=== PATIENT | male | born 1945 | race Caucasian/White ===

== ENCOUNTER 2022-01-27 14:00 | Inpatient (IN) | payer OTHER ==
[~2022-01-27] VITALS: Ht 167.6 cm; Wt 87.5 kg
[2022-01-27] MEDS ORDERED: IV NORMAL SALINE 1000 ML BAG IV ONE (14:15)
[2022-01-27] MEDS ORDERED: ALBUTEROL SULFATE 2.5 MG/3 ML NEBU ONE (14:56)
[2022-01-27] MEDS ORDERED: IPRATROPIUM BROMIDE 0.5 MG/2.5 ML NEBU ONE (14:56)
[2022-01-27] MEDS ORDERED: ALBUTEROL SULFATE 2.5 MG/3 ML NEBU NEB ONE (15:00)
[2022-01-27] MEDS ORDERED: IPRATROPIUM BROMIDE 0.5 MG/2.5 ML NEBU NEB ONE (15:00)
--- NOTE | 2022-01-27 15:51 | NUR ---
NS was not given due to no iv site available, mid line was order by supervisor hand workers and was told at 15:50 that service will arrived in 45 mins. will continue to followup on order.
--- NOTE | 2022-01-27 16:50 | NUR ---
MIDLINE INSERTED BY SPECIALTY RN PER MD ORDER.
[2022-01-27] MEDS ORDERED: FLUT16SP BNOSTRILS (17:15)
[2022-01-27] MEDS ORDERED: FLUT1DIS28 INH (17:15)
[2022-01-27] MEDS ORDERED: ZOLP5TAB8 PO (17:15)
[2022-01-27] MEDS ORDERED: HYDR-3972 PO (17:15)
[2022-01-27 17:35] LABS: CARBON DIOXIDE 23 mmol/L (21-32); CHLORIDE 109 mmol/L (98-107); CREATININE 1.3 mg/dL (0.6-1.3); GLUCOSE 128 mg/dL (74-106); POTASSIUM 3.8 mmol/L (3.5-5.1); UREA NITROGEN, BLOOD 16 mg/dL (7-18)
[2022-01-27 17:43] LABS: ALANINE AMINOTRANSFERASE 57 U/L (16-63); ALKALINE PHOSPHATASE 61 U/L (50-136); ASPARTATE AMINOTRANSFERASE 45 U/L (15-37); BILIRUBIN,DIRECT 0.6 mg/dL (0.0-0.2); BILIRUBIN,TOTAL 1.3 mg/dL (0.2-1.0); TOTAL PROTEIN, SERUM 5.8 g/dL (6.4-8.2)
[2022-01-27 17:59] LABS: HEMATOCRIT 22.7 % (36.7-47.1); MEAN CORPUSCULAR HEMOGLOBIN 31.5 uug (23.8-33.4); MEAN CORPUSCULAR VOLUME 101.2 fL (73.0-96.2); PLATELET COUNT (AUTO) 245 K/uL (152-348)
[2022-01-27] MEDS ORDERED: IV NS 1000 ML 1,000 ML IV PRN (19:00)
[2022-01-27] MEDS ORDERED: PANTOPRAZOLE SODIUM IV 80 MG in IV DEXTROSE 5% 500 ML IV ONE (19:00)
[2022-01-27] MEDS ORDERED: MAGNESIUM HYDROXIDE 30 ML LIQUID UDC PO PRN (19:00)
[2022-01-27] MEDS ORDERED: ACETAMINOPHEN 325 MG TABLET PO PRN (19:00)
[2022-01-27] MEDS ORDERED: OCTREOTIDE ACETATE INJ 500 MCG in IV DEXTROSE 5% 100 ML IV ONE (19:00)
[2022-01-27] MEDS ORDERED: REMEDY ESSENTIAL ZINC PASTE 113 GM TP PRN (19:00)
[2022-01-27] MEDS ORDERED: OCTREOTIDE ACETATE 50 MCG/1 ML ML IV ONE (19:00)
[2022-01-27] MEDS ORDERED: ONDANSETRON 4 MG/2 ML VIAL IV PRN (19:00)
--- NOTE | 2022-01-27 19:00 | NUR ---
Called Dr. Allan for GI consult.
--- NOTE | 2022-01-27 19:03 | NUR ---
Dr. Contreras on panel call with Lucia Montoya NP.
--- NOTE | 2022-01-27 19:10 | NUR ---
Received call back from pt's son, will stop by in ER later to give medication list.
[2022-01-27 19:20] LABS: HEMATOCRIT 24.7 % (36.7-47.1); PLATELET COUNT (AUTO) 204 K/uL (152-348)
--- NOTE | 2022-01-27 19:27 | NUR ---
Dr. Contreras speaking with Dr. Hardin.
[2022-01-27] MEDS ORDERED: PANTOPRAZOLE SODIUM 40 MG VIAL ONE (19:39)
[2022-01-27] MEDS ORDERED: OCTREOTIDE ACETATE 500 MCG/1 ML VIAL ONE (19:40)
[2022-01-27] MEDS ORDERED: OCTREOTIDE ACETATE 50 MCG/1 ML ML ONE (19:40)
--- NOTE | 2022-01-27 20:04 | NUR ---
Dr. Contreras speaking with Dr. Allan for GI consult.
[2022-01-27] MEDS ORDERED: MORPHINE SULFATE 2 MG/1 ML DISP.SYRIN ONE (20:11)
[2022-01-27] MEDS ORDERED: MORPHINE SULFATE 2 MG/1 ML DISP.SYRIN IV ONE (20:15)
[2022-01-27] MEDS ORDERED: MIRA25TA PO (20:22)
[2022-01-27] MEDS ORDERED: PRAV10TA40 PO (20:22)
[2022-01-27] MEDS ORDERED: METF-494 PO (20:22)
[2022-01-27] MEDS ORDERED: SPIR50TA5 PO (20:22)
[2022-01-27] MEDS ORDERED: LACT10SO3 PO (20:22)
[2022-01-27] MEDS ORDERED: ERGO500040 PO (20:22)
[2022-01-27] MEDS ORDERED: SUCR1TAB PO (20:22)
[2022-01-27] MEDS ORDERED: TAMS-3 PO (20:22)
[2022-01-27] MEDS ORDERED: ATEN50TA PO (20:22)
[2022-01-27] MEDS ORDERED: LEVO5TAB13 PO (20:22)
[2022-01-27] MEDS ORDERED: PANT40TA49 PO (20:22)
[2022-01-27] MEDS ORDERED: FURO20TA4 PO (20:22)
[2022-01-27] MEDS ORDERED: SOFO1TAB PO (20:22)
[2022-01-27] MEDS ORDERED: MULT-594 PO (20:22)
[2022-01-27] MEDS ORDERED: IBAN150T16 PO (20:22)
[2022-01-27] MEDS ORDERED: PIPERACILLIN SODIUM/TAZOBACTAM 3.375 G in IV DEXTROSE 5% 100 ML IV SCH (21:00)
--- NOTE | 2022-01-27 21:02 | NUR ---
Attempted to call report x1. Instructed by charge nurse MOIZ Ocampo that she will have primary assigned nurse to call back to get report.
--- NOTE | 2022-01-27 21:02 | NUR ---
Diana tena in ED - 01/27/22 at 2311 by DAYSIUZ Attempted to call report x1. Instructed by charge nurse MOIZ Ocampo that she will have primary assigned nurse to call back to get report.
--- NOTE | 2022-01-27 21:10 | NUR ---
Report given to MOIZ Ocampo.
[2022-01-27] MEDS ORDERED: PIPERACILLIN/TAZOBACTAM/D5W 50 ML IV ONE (21:45)
[2022-01-27] MEDS ORDERED: PIPERACILLIN SODIUM/TAZOBACTAM 3.375 G in IV DEXTROSE 5% 50 ML IV SCH (22:00)
--- NOTE | 2022-01-27 22:00 | NUR ---
Pt. admitted to Telemetry , under care of Lucia Montoya, ELLYN Belongs List completed
--- NOTE | 2022-01-27 22:05 | NUR ---
ADMITTED THIS 76 YEAR OLD MALE FROM ER, VIA GURSUDHAKAR W/ CHIEF COMPLAINTS OF LOWER G.BLEED,.PT ALERT AND ORIENTEDX4, HE SIGNED BLOOD TRANSFUSION CONSENT, HE HAD PARACENTHESIS DONE AT [facility] EARLIER,UPON GETTING HOME HE HAD BLOODY BOWEL MOVEMENTS AND CALLED 911. MIDLINE ON LEFT UPPER ARM INTACT, PERIPHERAL IV ON RIGHT HANDG G29 PATENT AND INTACT.ABRASION ON RT ARM
[2022-01-27 22:35] VITALS: BP 109/66
[2022-01-27 22:41] VITALS: BP 109/66
[2022-01-27 23:04] VITALS: BP 116/55
[2022-01-27 23:36] VITALS: BP 114/66
[2022-01-28] VITALS (8 sets, daily range): BP systolic 109–142; BP diastolic 54–83
--- NOTE | 2022-01-28 01:26 | NUR ---
Transfused 1 PRBC tolerated well, no noted adverse reaction. No noted resp distress. Will continue to monitor for delay reaction.
--- NOTE | 2022-01-28 01:45 | NUR ---
Troponin level is trending up, Jerry Jacobs NP aware no new order.
[2022-01-28 01:49] LABS: HEMATOCRIT 24.3 % (36.7-47.1)
[2022-01-28] MEDS ORDERED: PIPERACILLIN/TAZOBACTAM/D5W 50 ML IV ONE ×2 (02:21)
[2022-01-28] MEDS ORDERED: OCTREOTIDE ACETATE DRIP 500 MCG in IV NORMAL SALINE 99 ML IV PRN (06:00)
[2022-01-28 06:29] LABS: BILIRUBIN,TOTAL 1.5 mg/dL (0.2-1.0); CREATININE 1.3 mg/dL (0.6-1.3); MAGNESIUM 1.5 mg/dL (1.8-2.4); PHOSPHOROUS 4.1 mg/dL (2.5-4.9); POTASSIUM 3.9 mmol/L (3.5-5.1); TOTAL PROTEIN, SERUM 5.5 g/dL (6.4-8.2)
[2022-01-28 06:31] LABS: HEMATOCRIT 22.4 % (36.7-47.1); MEAN CORPUSCULAR HEMOGLOBIN 32.9 uug (23.8-33.4); MEAN CORPUSCULAR VOLUME 96.3 fL (73.0-96.2); PLATELET COUNT (AUTO) 156 K/uL (152-348)
--- NOTE | 2022-01-28 06:42 | NUR ---
Troponin level 381, Jerry Jacobs CRTTS made aware, no new order. Patient awake alert and oriented x3, denies chest pain.
[2022-01-28] MEDS ORDERED: OCTREOTIDE ACETATE DRIP 500 MCG in IV NORMAL SALINE 99 ML IV SCH (07:30)
--- NOTE | 2022-01-28 07:51 | NUR ---
I RECEIVED PATIENT FROM LABORATORY CHIEF AND WAS TOLD THAT HIS 4AM DOSE ZOSYN WASN'T ADMINISTERED. I CALLED TO THE PHARMACY AND WAS TOLD TO GIVE IT TO THE PATIENT NOW AT 8 AM. PHARMACY CHECKED COMPATIBILITY OF ZOSYN WITH SANDOSTATIN AND THEY SAID IT'S OK TO GIVE TOGETHER.
[2022-01-28] MEDS: FLUTICASONE/VILANTEROL 1 EACH BLST.W.DEV INH SCH (08:51)
[2022-01-28] MEDS: FLUTICASONE PROP NASAL SPRAY 16 GM BOTTLE NS SCH (08:51)
[2022-01-28] MEDS: PANTOPRAZOLE SODIUM 40 MG VIAL IV SCH ×2 (08:52→21:00)
[2022-01-28] MEDS ORDERED: FLUTICASONE/SALMETEROL 250/50 INHALER INH SCH (09:00)
[2022-01-28] MEDS ORDERED: PIPERACILLIN SODIUM/TAZOBACTAM 3.375 G in IV DEXTROSE 5% 50 ML IV SCH ×3 (10:00)
[2022-01-28] MEDS: MAGNESIUM SULFATE/D5W 100 ML IV SCH ×2 (10:23→15:03)
[2022-01-28] MEDS: PIPERACILLIN SODIUM/TAZOBACTAM 3.375 G in IV DEXTROSE 5% 100 ML IV SCH ×2 (11:20→20:00)
--- NOTE | 2022-01-28 12:24 | NUR ---
Patient was picked up for EGD at 12:06 pm. Patient didn't have any pain or distress. Vitals WNL
[2022-01-28] MEDS ORDERED: PROPOFOL 200 MG/20 ML BOTTLE IV ONE (12:42)
[2022-01-28] MEDS ORDERED: LIDOCAINE-MPF 2% 5 ML VIAL IJ ONE (12:42)
[2022-01-28] MEDS ORDERED: FENTANYL CITRATE 100 MCG/2 ML AMPUL ONE (13:04)
[2022-01-28] MEDS ORDERED: GABA-532 PO (13:13)
[2022-01-28] MEDS ORDERED: METF-440 PO (13:13)
[2022-01-28] MEDS ORDERED: AMLO-212 PO (13:13)
[2022-01-28 15:53] LABS: IRON, SERUM 28 ug/dL (50-175)
[2022-01-28] MEDS: OCTREOTIDE ACETATE DRIP 500 MCG in IV NORMAL SALINE 99 ML IV SCH (21:00)
[2022-01-28] MEDS ORDERED: MORPHINE SULFATE 2 MG/1 ML DISP.SYRIN IV PRN (22:30)
[2022-01-28] MEDS: MORPHINE SULFATE 2 MG/1 ML DISP.SYRIN IV PRN (22:59)
[2022-01-29 01:03] VITALS: BP 137/81
--- NOTE | 2022-01-29 01:42 | NUR ---
Lab was unable to withdraw blood from patient tried 2 other nurses still unable to withdraw blood will endorse to am nurse.
--- NOTE | 2022-01-29 02:09 | NUR ---
BEGINIING OF SHIFT PT C/O PAIN NO SIGNS OF RESPIRATORY DISTRESS NOTED. PT DIDN'T HAVE ANY MEDICATION FOR PAIN EXCEPT TYLENOL. CONTACTED DR. HARDEN AND HE ORDERED MORPHINE 2MG Q4H PRN GAVE PT MEDICATION AND REASSESSED PT AFTERWARDS.PT SLEEPING BUT EASY TO AROUSED WILL CONTINUE TO MONITOR FOR SAFETY. AND FALLS
[2022-01-29] MEDS: PIPERACILLIN SODIUM/TAZOBACTAM 3.375 G in IV DEXTROSE 5% 100 ML IV SCH ×3 (02:44→17:28)
[2022-01-29 04:41] VITALS: BP 110/62
[2022-01-29] MEDS: MORPHINE SULFATE 2 MG/1 ML DISP.SYRIN IV PRN ×4 (06:19→21:27)
[2022-01-29 06:44] LABS: HEMATOCRIT 22.5 % (36.7-47.1); MEAN CORPUSCULAR HEMOGLOBIN 31.9 uug (23.8-33.4); MEAN CORPUSCULAR VOLUME 97.7 fL (73.0-96.2); PLATELET COUNT (AUTO) 128 K/uL (152-348)
[2022-01-29 07:06] LABS: BILIRUBIN,TOTAL 1.1 mg/dL (0.2-1.0); CREATININE 1.2 mg/dL (0.6-1.3); MAGNESIUM 1.9 mg/dL (1.8-2.4); PHOSPHOROUS 3.4 mg/dL (2.5-4.9); POTASSIUM 3.6 mmol/L (3.5-5.1); TOTAL PROTEIN, SERUM 5.7 g/dL (6.4-8.2)
[2022-01-29 07:17] LABS: THYROID STIMULATING HORMONE 0.454 mIU/mL (0.358-3.740)
[2022-01-29] MEDS: OCTREOTIDE ACETATE DRIP 500 MCG in IV NORMAL SALINE 99 ML IV SCH (07:39)
[2022-01-29] MEDS: FLUTICASONE/VILANTEROL 1 EACH BLST.W.DEV INH SCH (10:46)
[2022-01-29] MEDS: FLUTICASONE PROP NASAL SPRAY 16 GM BOTTLE NS SCH (10:47)
[2022-01-29] MEDS: PANTOPRAZOLE SODIUM 40 MG VIAL IV SCH ×2 (10:51→20:21)
[2022-01-29 11:06] LABS: HEPATITIS B SURFACE AG Negative (Negative)
[2022-01-29 11:47] VITALS: BP 118/69
[2022-01-29] MEDS ORDERED: EPOETIN ALFA-EPBX 10,000 UNIT/ML VIAL SQ ONE (12:00)
[2022-01-29] MEDS: SUCRALFATE 1 G TABLET PO SCH ×3 (12:11→20:21)
[2022-01-29 17:00] VITALS: BP 130/65
[2022-01-29] MEDS: GABAPENTIN 100 MG CAPSULE PO SCH (17:01)
[2022-01-29] MEDS: LACTULOSE 20 G/30 ML LIQUID UDC PO SCH (17:01)
[2022-01-29 20:04] VITALS: BP 116/71
[2022-01-29] MEDS: TAMSULOSIN HCL 0.4 MG CAP.SR.24H PO SCH (20:21)
[2022-01-30 00:36] VITALS: BP 129/70
[2022-01-30 01:16] LABS: HEMATOCRIT 23.7 % (36.7-47.1)
[2022-01-30] MEDS: PIPERACILLIN SODIUM/TAZOBACTAM 3.375 G in IV DEXTROSE 5% 100 ML IV SCH ×3 (02:03→17:03)
[2022-01-30] MEDS: MORPHINE SULFATE 2 MG/1 ML DISP.SYRIN IV PRN ×2 (02:08→23:19)
[2022-01-30 04:15] VITALS: BP 100/70
[2022-01-30] MEDS: SUCRALFATE 1 G TABLET PO SCH ×4 (06:38→20:28)
[2022-01-30 06:43] LABS: HEMATOCRIT 22.6 % (36.7-47.1); MEAN CORPUSCULAR HEMOGLOBIN 32.5 uug (23.8-33.4); MEAN CORPUSCULAR VOLUME 97.3 fL (73.0-96.2); PLATELET COUNT (AUTO) 109 K/uL (152-348)
[2022-01-30 07:22] LABS: BILIRUBIN,TOTAL 1.1 mg/dL (0.2-1.0); CREATININE 1.2 mg/dL (0.6-1.3); MAGNESIUM 1.6 mg/dL (1.8-2.4); PHOSPHOROUS 3.1 mg/dL (2.5-4.9); POTASSIUM 3.4 mmol/L (3.5-5.1); TOTAL PROTEIN, SERUM 5.9 g/dL (6.4-8.2)
[2022-01-30] MEDS: FLUTICASONE/VILANTEROL 1 EACH BLST.W.DEV INH SCH (08:15)
[2022-01-30] MEDS: MULTIVITAMINS,THERAPEUTIC TABLET PO SCH (08:15)
[2022-01-30] MEDS: PANTOPRAZOLE SODIUM 40 MG VIAL IV SCH ×2 (08:15→20:28)
[2022-01-30] MEDS: GABAPENTIN 100 MG CAPSULE PO SCH ×3 (08:15→16:25)
[2022-01-30] MEDS: FLUTICASONE PROP NASAL SPRAY 16 GM BOTTLE NS SCH (08:16)
[2022-01-30] MEDS: LACTULOSE 20 G/30 ML LIQUID UDC PO SCH ×2 (08:16→16:25)
[2022-01-30] MEDS: SPIRONOLACTONE 50 MG TABLET PO SCH (08:29)
[2022-01-30] MEDS ORDERED: POTASSIUM CHLORIDE 20 MEQ TAB.PRT.SR PO ONE (09:00)
[2022-01-30] MEDS ORDERED: MAGNESIUM OXIDE 400 MG TABLET PO ONE (09:00)
[2022-01-30] MEDS ORDERED: FUROSEMIDE 20 MG TABLET PO SCH (09:00)
--- NOTE | 2022-01-30 09:27 | NUR ---
POTASSIUM LEVEL IS 3.4 AND MAG IS 1.6 WITH REPLACEMENT ORDERS AND NOTED.
--- NOTE | 2022-01-30 10:00 | NUR ---
RECEIVED IN BED AWAKE ALERT AND ORIENTED DENIES PAIN OR DISCOMFORTS AT THIS TIME ON ROOM AIR WITH NO SHORTNESS OF BREATH TELE IS ST REMAIN ON ATB ORDERED WITH NO ADVERSE OR ALLERGIC REACTIONS AT THIS TIME CALL LIGHTS AND PERSONAL BELONGINGS ARE WITHIN EASY REACH WILL CONTINUE TO OBSERVE.
[2022-01-30 11:32] VITALS: BP 126/70
--- NOTE | 2022-01-30 12:06 | NUR ---
Social Work consult was requested for a patient on medsurg to assess current living situation. Patient is 76-year-old male admitted to the hospital for GI bleed. Patient is alert and oriented X2. Patient could not state the date or location. Patient presents with anxious mood and congruent affect. Patient states his primary personnel officer is sister, Lalita Toscano ([phone]) who lives in [place] and is staying with the patient until he is discharged from the hospital and has home health services set up. DIO spoke with the patients case mgr from [facility] ([phone]) and she states that she is setting the patient up with [facility] ([phone]). Danyelle ([phone]) states that the patient will have a social service team and outpatient case management follow the patient after discharge. Patient states that he lives alone in a halfway building at [address] [place] [address] [facility] [id number]. Patient states that he is currently retired, is not driving, and is getting a wheelchair and walker. Patient states that he has a history of alcohol abuse and states he has been sober for over a year. DIO provided the patient resources for substance abuse from [address] [address] ([phone]), [facility] [address] [facility] [address] ([phone]), and [address] [address] ([phone]). SW also provided the number for alcoholics anonymous ([phone]). Patient states that he doesnt need resources because he is never going to drink alcohol again. Patient states alcohol is the reason for his health decline. SW placed the resources in the patients chart. Patient denies a history of a psychiatric diagnosis. Patient denies suicidal or homicidal ideation. The discharge plan is for his friend, Solomon to take him to home to [address] [place] [address] [facility] [address] [address] at discharge. DIO spoke with case mgrYunior who will follow up with discharge.
--- NOTE | 2022-01-30 14:30 | NUR ---
CALLED THE TECH TO INQUIRE WHEN THE PARACENTESIS WILL BE DONE SPOKE WITH GUSTAVO AND HE STATED THAT HE IS MAKING ARRANGEMENTS TO HAVE IT DONE TOMORROW MORNING AND WILL ENDORSE.
[2022-01-30 16:00] VITALS: BP 108/67
--- NOTE | 2022-01-30 18:00 | NUR ---
RESTING IN BED DENIES DISCOMFORTS ALERT AND ORIENTED GENERALISED EDEMA EVIDENT REPOSITIONED FOR COMFORT.REMAIN ON ATB ORDERED WITH NO ADVERSE OR ALLERGIC REACTIONS AT THIS TIME WILL CONTINUE TO OBSERVE.
--- NOTE | 2022-01-30 19:30 | NUR ---
Received patient lying in bed. AAOx4. In no acute distress. Denies any pain or SOB. Abdomen with severe ascites. Pending paracentesis. NSR on tele with PAC and PVC's, HR of 93/min. IV site on right handx2 intact and patent. Needs assessed and attended to. Safety measure initiated and call light within reached.
[2022-01-30 20:00] VITALS: BP 121/71
[2022-01-30] MEDS: TAMSULOSIN HCL 0.4 MG CAP.SR.24H PO SCH (20:28)
[2022-01-30] MEDS: ZOLPIDEM 5 MG TABLET PO PRN (20:28)
[2022-01-30] MEDS: REMEDY ESSENTIAL ZINC PASTE 113 GM TP SCH (20:29)
[2022-01-31] VITALS: BP 116/60
[2022-01-31] MEDS: PIPERACILLIN SODIUM/TAZOBACTAM 3.375 G in IV DEXTROSE 5% 100 ML IV SCH ×3 (01:30→17:18)
[2022-01-31 04:00] VITALS: BP 128/68
[2022-01-31] MEDS: MORPHINE SULFATE 2 MG/1 ML DISP.SYRIN IV PRN ×2 (04:30→23:49)
--- NOTE | 2022-01-31 05:41 | NUR ---
In no acute distress. Morphine 2mg via IV given for complain of pain and effective. No adverse reaction noted from IV antibiotic. NSR on tele with PAC's and PVC, with a HR of 96/min. Needs attended to and met. Safety measure maintained and call light within reached.
--- NOTE | 2022-01-31 06:15 | NUR ---
Telephone call to c2 tactical analysis technician Dylon regarding Paracentesis. per Dylon he will coordinate with US tech when they get here this morning. Reminded to follow up on it.
[2022-01-31 06:34] LABS: HEMATOCRIT 23.2 % (36.7-47.1); MEAN CORPUSCULAR HEMOGLOBIN 31.6 uug (23.8-33.4); MEAN CORPUSCULAR VOLUME 97.5 fL (73.0-96.2); PLATELET COUNT (AUTO) 107 K/uL (152-348)
[2022-01-31] MEDS: SUCRALFATE 1 G TABLET PO SCH ×4 (06:38→22:16)
[2022-01-31 06:50] LABS: CREATININE 1.1 mg/dL (0.6-1.3); MAGNESIUM 1.5 mg/dL (1.8-2.4); PHOSPHOROUS 2.7 mg/dL (2.5-4.9); POTASSIUM 3.4 mmol/L (3.5-5.1)
[2022-01-31] MEDS ORDERED: POTASSIUM CHLORIDE 20 MEQ POWDER PACKET PO ONE (07:15)
--- NOTE | 2022-01-31 08:00 | NUR ---
PHONE CALL RECEIVED FROM KENNETH [facility] [employer] STATED THAT PROCEDURE WILL BE DONE THIS AM PATIENT AWARE.
[2022-01-31] MEDS: LACTULOSE 20 G/30 ML LIQUID UDC PO SCH ×2 (08:12→17:17)
[2022-01-31] MEDS: MAGNESIUM SULFATE/D5W 100 ML IV SCH ×3 (08:12→10:37)
[2022-01-31] MEDS: PANTOPRAZOLE SODIUM 40 MG VIAL IV SCH ×2 (08:13→22:16)
[2022-01-31] MEDS: MULTIVITAMINS,THERAPEUTIC TABLET PO SCH (08:13)
[2022-01-31] MEDS: FUROSEMIDE 40 MG TABLET PO SCH (08:13)
[2022-01-31] MEDS: GABAPENTIN 100 MG CAPSULE PO SCH ×3 (08:13→17:17)
[2022-01-31] MEDS: FLUTICASONE PROP NASAL SPRAY 16 GM BOTTLE NS SCH (08:13)
[2022-01-31] MEDS: SPIRONOLACTONE 50 MG TABLET PO SCH (08:13)
[2022-01-31] MEDS: REMEDY ESSENTIAL ZINC PASTE 113 GM TP SCH ×2 (08:16→22:18)
[2022-01-31] MEDS: FLUTICASONE/VILANTEROL 1 EACH BLST.W.DEV INH SCH (08:21)
[2022-01-31] MEDS ORDERED: FUROSEMIDE 20 MG TABLET PO SCH (09:00)
--- NOTE | 2022-01-31 09:00 | NUR ---
MAG LEVEL IS 1.5 AND POTASSIUM IS 3.4 WITH NEW ORDERS TO REPLACE THESE ELECTROLYTES AND NOTED
--- NOTE | 2022-01-31 11:23 | NUR ---
Spoke to Rad, SAID HED DO PARACENTESIS AFTER 1PM
[2022-01-31 12:05] VITALS: BP 123/68
--- NOTE | 2022-01-31 15:20 | NUR ---
PARACENTESIS COMPLETED AT THE BEDSIDE ORDERED AND 850 ML PALE YELLOW LIQUIDS REMOVED PATIENT TOLERATED PROCEDURE WELL.
[2022-01-31 16:00] VITALS: BP 110/67
--- NOTE | 2022-01-31 16:48 | NUR ---
DR FRANCO HERE AND SEEN PATIENT WITH ORDERS FOR AM LABS AND NOTED.
[2022-01-31] MEDS: PROTEIN SUPPLEMENT (PROSTAT) 30 ML LIQUID PO SCH (17:18)
--- NOTE | 2022-01-31 18:00 | NUR ---
RESTING IN BED STATED HIS STOMACH FEELS BETTER AFTER THE PARACENTESIS REMAIN ON IV ATB WITH NO ADVERSE OR ALLERGIC REACTIONS AT THIS TIME MADE COMFORTABLE WILL CONTINUE TO OBSERVE.
[2022-01-31 20:00] VITALS: BP 139/61
[2022-01-31] MEDS: TAMSULOSIN HCL 0.4 MG CAP.SR.24H PO SCH (22:16)
[2022-01-31] MEDS: ZOLPIDEM 5 MG TABLET PO PRN ×4 (22:40→23:56)
[2022-02-01] VITALS: BP 137/50
[2022-02-01] MEDS: PIPERACILLIN SODIUM/TAZOBACTAM 3.375 G in IV DEXTROSE 5% 100 ML IV SCH ×3 (02:34→17:54)
[2022-02-01 04:00] VITALS: BP 130/62
[2022-02-01 06:42] LABS: HEMATOCRIT 25.2 % (36.7-47.1); MEAN CORPUSCULAR HEMOGLOBIN 31.7 uug (23.8-33.4); MEAN CORPUSCULAR VOLUME 96.8 fL (73.0-96.2); PLATELET COUNT (AUTO) 120 K/uL (152-348)
[2022-02-01] MEDS: MORPHINE SULFATE 2 MG/1 ML DISP.SYRIN IV PRN ×3 (06:46→21:51)
[2022-02-01] MEDS: ZOLPIDEM 5 MG TABLET PO PRN ×3 (06:49→20:49)
[2022-02-01 07:05] LABS: MAGNESIUM 1.4 mg/dL (1.8-2.4); PHOSPHOROUS 2.3 mg/dL (2.5-4.9)
--- NOTE | 2022-02-01 07:26 | NUR ---
AWAKE ALERT AND ORIENTED DENIES PAIN OR DISCOMFORTS AT THIS TIME ON ROOM AIR WITH NO SHORTNESS OF BREATH REMAIN ON IVPB ATB WITH NO S/S OF INFILTERATION ON SITE.S/P PARACENTESIS NO BLEEDING NOT IN DISTRESS AT THIS TIME WILL CONTINUE TO OBSERVE.
[2022-02-01] MEDS: SUCRALFATE 1 G TABLET PO SCH ×4 (07:57→20:46)
[2022-02-01] MEDS: FLUTICASONE PROP NASAL SPRAY 16 GM BOTTLE NS SCH (09:02)
[2022-02-01] MEDS: LACTULOSE 20 G/30 ML LIQUID UDC PO SCH ×2 (09:02→16:18)
[2022-02-01] MEDS: FUROSEMIDE 40 MG TABLET PO SCH (09:02)
[2022-02-01] MEDS: GABAPENTIN 100 MG CAPSULE PO SCH ×3 (09:02→16:18)
[2022-02-01] MEDS: MULTIVITAMINS,THERAPEUTIC TABLET PO SCH (09:02)
[2022-02-01] MEDS: PANTOPRAZOLE SODIUM 40 MG VIAL IV SCH ×2 (09:02→20:46)
[2022-02-01] MEDS: FLUTICASONE/VILANTEROL 1 EACH BLST.W.DEV INH SCH (09:02)
[2022-02-01] MEDS: SPIRONOLACTONE 50 MG TABLET PO SCH (09:05)
[2022-02-01] MEDS: POTASSIUM CHLORIDE 20 MEQ POWDER PACKET PO ONE ×2 (09:30→09:44)
[2022-02-01] MEDS: PROTEIN SUPPLEMENT (PROSTAT) 30 ML LIQUID PO SCH ×2 (09:34→17:41)
[2022-02-01] MEDS: REMEDY ESSENTIAL ZINC PASTE 113 GM TP SCH ×2 (09:35→20:47)
--- NOTE | 2022-02-01 09:44 | NUR ---
potassium level is 3.0 and mag is 1.4 with new orders and noted.
--- NOTE | 2022-02-01 10:00 | NUR ---
PATIENT REFUSED TO TAKE HIS POTASSIUM ORDERED STATED THAT THE TASTE IS HORRIBLE PHARMACY NOTIFIED STATED WILL CHANGE TO IV MEANWHILE PATIENT NEEDS A MID LINE AWAITING FOR THE MID LINE NURSE.
[2022-02-01 11:32] VITALS: BP 119/66
[2022-02-01] MEDS ORDERED: POTASSIUM CHLORIDE 20 MEQ POWDER PACKET PO ONE (12:00)
[2022-02-01] MEDS: MAGNESIUM SULFATE/D5W 100 ML IV SCH ×4 (12:26→16:13)
--- NOTE | 2022-02-01 13:12 | NUR ---
DR FRANCO HERE TO SEE PATIENT AWARE THAT PATIENT IS NOT EATING REFUSING HIS ORAL POTASSIUM IV LINE IS VERY POSITIONAL AND WILL NEED MID LINE DUE TO MULTIPLE INFUSIONS ALSO MULTIPLE ATTEMPTS TO INSERT ANOTHER LINE STATED TO GIVE THE POTASSIUM IV.
[2022-02-01] MEDS: POTASSIUM CHLORIDE 50 ML IV SCH ×6 (13:46→19:57)
[2022-02-01 15:44] VITALS: BP 122/73
[2022-02-01] MEDS ORDERED: NEUTRA PHOS PACKET PO ONE (16:00)
[2022-02-01 20:00] VITALS: BP 120/67
[2022-02-01] MEDS: TAMSULOSIN HCL 0.4 MG CAP.SR.24H PO SCH (20:46)
[2022-02-02 04:00] VITALS: BP 126/74
[2022-02-02] MEDS: MORPHINE SULFATE 2 MG/1 ML DISP.SYRIN IV PRN ×3 (04:37→21:01)
[2022-02-02] MEDS: SUCRALFATE 1 G TABLET PO SCH ×4 (07:04→20:54)
[2022-02-02 07:38] LABS: HEMATOCRIT 23.6 % (36.7-47.1); MEAN CORPUSCULAR HEMOGLOBIN 31.4 uug (23.8-33.4); MEAN CORPUSCULAR VOLUME 95.1 fL (73.0-96.2); PLATELET COUNT (AUTO) 118 K/uL (152-348)
[2022-02-02 07:52] LABS: MAGNESIUM 1.6 mg/dL (1.8-2.4); PHOSPHOROUS 2.2 mg/dL (2.5-4.9); POTASSIUM 3.3 mmol/L (3.5-5.1)
[2022-02-02] MEDS: ZOLPIDEM 5 MG TABLET PO PRN ×2 (09:18→20:54)
[2022-02-02] MEDS: MAGNESIUM SULFATE/D5W 100 ML IV SCH ×4 (09:20→11:49)
[2022-02-02] MEDS: PANTOPRAZOLE SODIUM 40 MG VIAL IV SCH ×2 (09:21→20:53)
[2022-02-02] MEDS: FLUTICASONE/VILANTEROL 1 EACH BLST.W.DEV INH SCH (09:21)
[2022-02-02] MEDS: POTASSIUM CHLORIDE 50 ML IV SCH ×4 (09:21→11:49)
[2022-02-02] MEDS: FUROSEMIDE 40 MG TABLET PO SCH (09:22)
[2022-02-02] MEDS: FLUTICASONE PROP NASAL SPRAY 16 GM BOTTLE NS SCH (09:22)
[2022-02-02] MEDS: MULTIVITAMINS,THERAPEUTIC TABLET PO SCH (09:23)
[2022-02-02] MEDS: SPIRONOLACTONE 50 MG TABLET PO SCH (09:23)
[2022-02-02] MEDS: GABAPENTIN 100 MG CAPSULE PO SCH ×3 (09:23→16:57)
[2022-02-02] MEDS: LACTULOSE 20 G/30 ML LIQUID UDC PO SCH ×2 (09:24→16:57)
[2022-02-02] MEDS: REMEDY ESSENTIAL ZINC PASTE 113 GM TP SCH ×2 (09:25→20:59)
[2022-02-02] MEDS: PROTEIN SUPPLEMENT (PROSTAT) 30 ML LIQUID PO SCH ×2 (09:25→17:00)
[2022-02-02] MEDS: CIPROFLOXACIN HCL 250 MG TABLET PO SCH (09:30)
[2022-02-02 12:18] VITALS: BP 124/83
[2022-02-02] MEDS ORDERED: NEUTRA PHOS PACKET PO ONE (16:00)
[2022-02-02 16:37] VITALS: BP 115/67
[2022-02-02 20:00] VITALS: BP 134/66
[2022-02-02] MEDS: TAMSULOSIN HCL 0.4 MG CAP.SR.24H PO SCH (20:58)
[2022-02-03 04:00] VITALS: BP 124/68
[2022-02-03 06:51] LABS: HEMATOCRIT 23.3 % (36.7-47.1); MEAN CORPUSCULAR VOLUME 96.2 fL (73.0-96.2); PLATELET COUNT (AUTO) 102 K/uL (152-348)
[2022-02-03] MEDS: SUCRALFATE 1 G TABLET PO SCH ×4 (07:20→20:33)
[2022-02-03 07:32] LABS: MAGNESIUM 1.8 mg/dL (1.8-2.4); PHOSPHOROUS 2.6 mg/dL (2.5-4.9); POTASSIUM 3.8 mmol/L (3.5-5.1)
[2022-02-03] MEDS: PANTOPRAZOLE SODIUM 40 MG VIAL IV SCH ×2 (09:09→20:33)
[2022-02-03] MEDS: FLUTICASONE/VILANTEROL 1 EACH BLST.W.DEV INH SCH (09:09)
[2022-02-03] MEDS: FLUTICASONE PROP NASAL SPRAY 16 GM BOTTLE NS SCH (09:11)
[2022-02-03] MEDS: SPIRONOLACTONE 50 MG TABLET PO SCH (09:12)
[2022-02-03] MEDS: LACTULOSE 20 G/30 ML LIQUID UDC PO SCH ×2 (09:12→16:08)
[2022-02-03] MEDS: CIPROFLOXACIN HCL 250 MG TABLET PO SCH (09:12)
[2022-02-03] MEDS: FUROSEMIDE 40 MG TABLET PO SCH (09:13)
[2022-02-03] MEDS: GABAPENTIN 100 MG CAPSULE PO SCH ×3 (09:13→16:08)
[2022-02-03] MEDS: MULTIVITAMINS,THERAPEUTIC TABLET PO SCH (09:13)
[2022-02-03] MEDS: PROTEIN SUPPLEMENT (PROSTAT) 30 ML LIQUID PO SCH ×2 (09:13→16:08)
[2022-02-03] MEDS: REMEDY ESSENTIAL ZINC PASTE 113 GM TP SCH ×2 (09:14→20:33)
[2022-02-03] MEDS: MORPHINE SULFATE 2 MG/1 ML DISP.SYRIN IV PRN ×3 (09:15→20:44)
[2022-02-03 09:34] LABS: EOSINOPHILS % (MANUAL) 1 % (0-8); LYMPHOCYTES % (MANUAL) 15 % (20-40); MONOCYTES % (MANUAL) 4 % (2-10); NEUTROPHILS % (MANUAL) 80 % (42-75)
[2022-02-03] MEDS: KETOROLAC TROMETHAMINE 30 MG INJ IM PRN (11:44)
[2022-02-03 12:01] VITALS: BP 118/61
[2022-02-03 16:00] VITALS: BP 98/54
--- NOTE | 2022-02-03 18:01 | NUR ---
Patient tolerated care well throughout shift with minimal complaints of distress. Pain noted during shift, with medicinal interventions provided for patient. IV site patent and intact. Bed left in lowest position with call light within reach. Comfort measures provided. Will endorse information to PM nurse.
--- NOTE | 2022-02-03 19:30 | NUR ---
Received patient in bed, alert oriented, no sob no chest pain, but complain of abdominal pain, radiates to left armpit, abdomen distended, patient has US abdomen order by MD, will medicate as ordered. cont to john.
[2022-02-03 20:04] VITALS: BP 118/61
[2022-02-03] MEDS: TAMSULOSIN HCL 0.4 MG CAP.SR.24H PO SCH (20:33)
[2022-02-04] MEDS: MORPHINE SULFATE 2 MG/1 ML DISP.SYRIN IV PRN ×4 (02:27→21:20)
--- NOTE | 2022-02-04 02:57 | NUR ---
Patient awake complain of abdominal pain, given morphine as ordered, cont to monitor.
[2022-02-04 04:00] VITALS: BP 122/58
--- NOTE | 2022-02-04 06:17 | NUR ---
Patient alert oriented, no sob no chest pain, no further complain of pain at this time, Patient has lose bowel movement state that "it's because some of his medication does the lose BM". Rendered good sheryl care, kept clean and dry, abdomen still distended. Patient has ultrasound order will endorse to next shift.
[2022-02-04] MEDS: SUCRALFATE 1 G TABLET PO SCH ×4 (06:23→21:03)
[2022-02-04 06:56] LABS: HEMATOCRIT 23.7 % (36.7-47.1); MEAN CORPUSCULAR HEMOGLOBIN 31.2 uug (23.8-33.4); MEAN CORPUSCULAR VOLUME 94.6 fL (73.0-96.2); PLATELET COUNT (AUTO) 102 K/uL (152-348)
[2022-02-04 07:31] LABS: MAGNESIUM 1.6 mg/dL (1.8-2.4); PHOSPHOROUS 2.4 mg/dL (2.5-4.9); POTASSIUM 3.5 mmol/L (3.5-5.1)
[2022-02-04] MEDS: FLUTICASONE/VILANTEROL 1 EACH BLST.W.DEV INH SCH (08:27)
[2022-02-04] MEDS: FLUTICASONE PROP NASAL SPRAY 16 GM BOTTLE NS SCH (08:27)
[2022-02-04] MEDS: LACTULOSE 20 G/30 ML LIQUID UDC PO SCH ×2 (08:28→17:04)
[2022-02-04] MEDS: MULTIVITAMINS,THERAPEUTIC TABLET PO SCH (08:28)
[2022-02-04] MEDS: PANTOPRAZOLE SODIUM 40 MG VIAL IV SCH ×2 (08:28→21:03)
[2022-02-04] MEDS: GABAPENTIN 100 MG CAPSULE PO SCH ×3 (08:28→17:03)
[2022-02-04] MEDS: FUROSEMIDE 40 MG TABLET PO SCH (08:29)
[2022-02-04] MEDS: REMEDY ESSENTIAL ZINC PASTE 113 GM TP SCH ×2 (08:29→21:04)
[2022-02-04] MEDS: PROTEIN SUPPLEMENT (PROSTAT) 30 ML LIQUID PO SCH ×2 (08:29→17:04)
[2022-02-04] MEDS: SPIRONOLACTONE 50 MG TABLET PO SCH (08:29)
[2022-02-04] MEDS: CIPROFLOXACIN HCL 250 MG TABLET PO SCH (08:29)
[2022-02-04 10:06] LABS: *HCV QUANT HCV Not Detected IU/mL (.)
[2022-02-04] MEDS: POTASSIUM CHLORIDE 10 MEQ TAB.PRT.SR PO SCH (11:34)
[2022-02-04 11:35] VITALS: BP 109/60
[2022-02-04] MEDS: MAGNESIUM SULFATE/D5W 100 ML IV SCH ×2 (11:58→12:00)
--- NOTE | 2022-02-04 15:08 | NUR ---
Pt came from home with complaint of weakness. Dx: Lower GI bleed with no known allergies on full code. He is alert and oriented x4, on 2 liters of oxygen via nasal cannula with saturation 96%. patient is currently taking Morphine IV for pain. He has left upper midline, bedound, moderate assist. Patient did complained of pain and morphine given, tolerated well with no discomfort noted. He is on Lasix PO, +3 pitting edema. Patient is on Full Liquids. All medications to be crushed and mix with water. WBC-1.8 Low, doctor is aware. 800cc of paracentesis pulled out on 01/31. Patient is scheduled for and ultrasound to be done today.
[2022-02-04] MEDS ORDERED: NEUTRA PHOS PACKET PO ONE (16:00)
[2022-02-04 16:14] VITALS: BP 101/64
[2022-02-04] MEDS: TAMSULOSIN HCL 0.4 MG CAP.SR.24H PO SCH (21:03)
[2022-02-05] MEDS: SUCRALFATE 1 G TABLET PO SCH ×4 (06:40→22:24)
[2022-02-05] MEDS: MORPHINE SULFATE 2 MG/1 ML DISP.SYRIN IV PRN (06:49)
[2022-02-05 07:07] LABS: HEMATOCRIT 22.4 % (36.7-47.1); PLATELET COUNT (AUTO) 105 K/uL (152-348)
[2022-02-05 07:27] LABS: CREATININE 0.9 mg/dL (0.6-1.3); MAGNESIUM 1.6 mg/dL (1.8-2.4); POTASSIUM 3.6 mmol/L (3.5-5.1)
--- NOTE | 2022-02-05 07:45 | NUR ---
Received critical lab results hemoglobin 7.4, WBC 1.7 MD notified. Endorsed to morning shift.
[2022-02-05] MEDS: FLUTICASONE/VILANTEROL 1 EACH BLST.W.DEV INH SCH (08:45)
[2022-02-05] MEDS: PANTOPRAZOLE SODIUM 40 MG VIAL IV SCH ×2 (08:45→22:24)
[2022-02-05] MEDS: FLUTICASONE PROP NASAL SPRAY 16 GM BOTTLE NS SCH (08:46)
[2022-02-05] MEDS: LACTULOSE 20 G/30 ML LIQUID UDC PO SCH ×2 (08:46→16:22)
[2022-02-05] MEDS: CIPROFLOXACIN HCL 250 MG TABLET PO SCH (08:46)
[2022-02-05] MEDS: FUROSEMIDE 40 MG TABLET PO SCH (08:47)
[2022-02-05] MEDS: POTASSIUM CHLORIDE 10 MEQ TAB.PRT.SR PO SCH (08:47)
[2022-02-05] MEDS: MULTIVITAMINS,THERAPEUTIC TABLET PO SCH (08:47)
[2022-02-05] MEDS: SPIRONOLACTONE 50 MG TABLET PO SCH (08:47)
[2022-02-05] MEDS: PROTEIN SUPPLEMENT (PROSTAT) 30 ML LIQUID PO SCH ×2 (08:48→16:23)
[2022-02-05] MEDS: GABAPENTIN 100 MG CAPSULE PO SCH ×3 (08:48→16:22)
[2022-02-05] MEDS: REMEDY ESSENTIAL ZINC PASTE 113 GM TP SCH ×2 (08:49→21:00)
[2022-02-05] MEDS: MAGNESIUM SULFATE/D5W 100 ML IV SCH ×4 (09:12→11:27)
[2022-02-05 12:12] VITALS: BP 110/61
[2022-02-05] MEDS: OXYCODONE HCL 5 MG TABLET PO PRN (13:55)
[2022-02-05 17:03] VITALS: BP 114/64
[2022-02-05 20:00] VITALS: BP 102/62
[2022-02-05] MEDS: TAMSULOSIN HCL 0.4 MG CAP.SR.24H PO SCH (22:24)
[2022-02-05] MEDS: ZOLPIDEM 5 MG TABLET PO PRN (22:25)
[2022-02-06] VITALS: BP 100/62
[2022-02-06 06:17] LABS: MEAN CORPUSCULAR HEMOGLOBIN 30.4 uug (23.8-33.4); MEAN CORPUSCULAR VOLUME 93.6 fL (73.0-96.2); PLATELET COUNT (AUTO) 105 K/uL (152-348)
[2022-02-06] MEDS: OXYCODONE HCL 5 MG TABLET PO PRN (06:36)
[2022-02-06 07:04] LABS: CREATININE 0.9 mg/dL (0.6-1.3); MAGNESIUM 1.7 mg/dL (1.8-2.4); PHOSPHOROUS 2.5 mg/dL (2.5-4.9); POTASSIUM 3.5 mmol/L (3.5-5.1)
[2022-02-06] MEDS: SUCRALFATE 1 G TABLET PO SCH ×4 (07:31→21:08)
[2022-02-06] MEDS: PANTOPRAZOLE SODIUM 40 MG VIAL IV SCH ×2 (08:21→21:08)
[2022-02-06] MEDS: FLUTICASONE/VILANTEROL 1 EACH BLST.W.DEV INH SCH (08:21)
[2022-02-06] MEDS: MULTIVITAMINS,THERAPEUTIC TABLET PO SCH (08:22)
[2022-02-06] MEDS: GABAPENTIN 100 MG CAPSULE PO SCH ×3 (08:22→17:01)
[2022-02-06] MEDS: SPIRONOLACTONE 50 MG TABLET PO SCH (08:22)
[2022-02-06] MEDS: FLUTICASONE PROP NASAL SPRAY 16 GM BOTTLE NS SCH (08:22)
[2022-02-06] MEDS: FUROSEMIDE 40 MG TABLET PO SCH (08:22)
[2022-02-06] MEDS: POTASSIUM CHLORIDE 10 MEQ TAB.PRT.SR PO SCH (08:22)
[2022-02-06] MEDS: LACTULOSE 20 G/30 ML LIQUID UDC PO SCH ×2 (08:22→17:01)
[2022-02-06] MEDS: REMEDY ESSENTIAL ZINC PASTE 113 GM TP SCH ×2 (08:23→21:08)
[2022-02-06] MEDS: PROTEIN SUPPLEMENT (PROSTAT) 30 ML LIQUID PO SCH ×2 (08:24→17:01)
[2022-02-06] MEDS: CIPROFLOXACIN HCL 250 MG TABLET PO SCH (08:30)
--- NOTE | 2022-02-06 08:30 | NUR ---
received awake alert and oriented x 3, on room air- no dyspnea noted, abdomen distended, had paracentesis on , denies of discomfort at this time, needs attended, safety measures maintained
[2022-02-06] MEDS: MAGNESIUM SULFATE/D5W 100 ML IV SCH ×3 (09:34→11:46)
[2022-02-06 11:40] LABS: EOSINOPHILS % (MANUAL) 2 % (0-8); LYMPHOCYTES % (MANUAL) 22 % (20-40); MONOCYTES % (MANUAL) 13 % (2-10); NEUTROPHILS % (MANUAL) 63 % (42-75)
[2022-02-06 11:50] VITALS: BP 122/69
[2022-02-06 11:51] VITALS: BP 122/69
--- NOTE | 2022-02-06 12:30 | NUR ---
PT NOTE pt refused PT tx 2/2 d/c planning. Pt encouraged and still refusing.
--- NOTE | 2022-02-06 14:30 | NUR ---
seen by Dr Johnson- informed that son wants to talk to her- she has the son's number
--- NOTE | 2022-02-06 15:30 | NUR ---
states pain in abdomen relieved, dozing in between care,
[2022-02-06] MEDS: KETOROLAC TROMETHAMINE 30 MG INJ IM PRN ×2 (15:56→22:42)
--- NOTE | 2022-02-06 15:56 | NUR ---
medicated with toradol im for pain as needed
[2022-02-06 16:45] VITALS: BP 116/64
--- NOTE | 2022-02-06 17:50 | NUR ---
no distress noted, all needs attended and met, call light within reach
[2022-02-06 20:00] VITALS: BP 110/74
--- NOTE | 2022-02-06 20:00 | NUR ---
RECEIVED REPORT FROM AM NURSE HUDSON PATIENT IS ALERT AND ORIENTED X4 PT SON REQUEST PT GO TO SNF BEFORE BEING D/C HOME PT KEPT IN PT HAS LOW WBC. PT TOOK MEDICATION ORDERED NO SIGNS OF ADVERSE REACTION NOTED. PT GIVEN AMBIEN FOR SLEEP AND TORADOL FOR PAIN WILL CONTINUE TO MONITOR FALL AND SAFETY
[2022-02-06] MEDS: MAGNESIUM OXIDE 400 MG TABLET PO SCH (21:08)
[2022-02-06] MEDS: TAMSULOSIN HCL 0.4 MG CAP.SR.24H PO SCH (21:08)
[2022-02-06] MEDS: ZOLPIDEM 5 MG TABLET PO PRN (22:40)
[2022-02-07 04:00] VITALS: BP 103/65
[2022-02-07] MEDS: SUCRALFATE 1 G TABLET PO SCH ×4 (06:38→21:00)
[2022-02-07 06:44] LABS: MAGNESIUM 1.7 mg/dL (1.8-2.4); POTASSIUM 3.7 mmol/L (3.5-5.1)
[2022-02-07 06:48] LABS: HEMATOCRIT 22.4 % (36.7-47.1); MEAN CORPUSCULAR HEMOGLOBIN 30.6 uug (23.8-33.4); MEAN CORPUSCULAR VOLUME 92.3 fL (73.0-96.2); PLATELET COUNT (AUTO) 103 K/uL (152-348)
--- NOTE | 2022-02-07 08:00 | NUR ---
resting in bed, denies of any discomfort, on 2l/nc, sat at 96%, explained plan of care- call light within each
[2022-02-07] MEDS: MAGNESIUM SULFATE/D5W 100 ML IV SCH ×4 (08:21→11:44)
[2022-02-07] MEDS: FLUTICASONE PROP NASAL SPRAY 16 GM BOTTLE NS SCH (08:26)
[2022-02-07] MEDS: PANTOPRAZOLE SODIUM 40 MG VIAL IV SCH ×2 (08:26→20:59)
[2022-02-07] MEDS: FLUTICASONE/VILANTEROL 1 EACH BLST.W.DEV INH SCH (08:26)
[2022-02-07] MEDS: LACTULOSE 20 G/30 ML LIQUID UDC PO SCH ×2 (08:26→16:29)
[2022-02-07] MEDS: CIPROFLOXACIN HCL 250 MG TABLET PO SCH (08:26)
[2022-02-07] MEDS: GABAPENTIN 100 MG CAPSULE PO SCH ×3 (08:27→16:29)
[2022-02-07] MEDS: MULTIVITAMINS,THERAPEUTIC TABLET PO SCH (08:27)
[2022-02-07] MEDS: SPIRONOLACTONE 50 MG TABLET PO SCH (08:27)
[2022-02-07] MEDS: PROTEIN SUPPLEMENT (PROSTAT) 30 ML LIQUID PO SCH ×2 (08:27→16:29)
[2022-02-07] MEDS: FUROSEMIDE 40 MG TABLET PO SCH (08:27)
[2022-02-07] MEDS: POTASSIUM CHLORIDE 10 MEQ TAB.PRT.SR PO SCH (08:27)
[2022-02-07] MEDS: REMEDY ESSENTIAL ZINC PASTE 113 GM TP SCH ×2 (08:28→21:10)
[2022-02-07] MEDS: KETOROLAC TROMETHAMINE 30 MG INJ IM PRN ×2 (09:49→16:29)
[2022-02-07 11:49] VITALS: BP 111/70
--- NOTE | 2022-02-07 12:00 | NUR ---
had a samll amount of old blood stool in diaper, washed and kept clean and dry, call light within reach, ELLYN katz
--- NOTE | 2022-02-07 13:00 | NUR ---
visitor at bedside, son would like to speak to CM and hospitalist- both informed
[2022-02-07 13:52] LABS: EOSINOPHILS % (MANUAL) 1 % (0-8); LYMPHOCYTES % (MANUAL) 27 % (20-40); MONOCYTES % (MANUAL) 11 % (2-10); NEUTROPHILS % (MANUAL) 61 % (42-75)
[2022-02-07 16:00] VITALS: BP 93/69
--- NOTE | 2022-02-07 17:00 | NUR ---
resting in bed, asked CM earlier re discharge, but not confirmed, no distress noted, prepared discharge papers, all needs attended and met, call light within reach
--- NOTE | 2022-02-07 19:00 | NUR ---
had a large amount rectal bleeding with clots and some stool, ELLYN Arciniega informed with orders
[2022-02-07 20:16] LABS: *OCCULT BLOOD STOOL POSITIVE (NEGATIVE)
--- NOTE | 2022-02-07 20:45 | NUR ---
Patient alert oriented, no sob no chest pain, complain of abdominal pain, will medicate as ordered, patient abdomen distended, uses urinal for bladder eliminations, no episode of bloody bm at this time, v/s stable, cont to monitor.
[2022-02-07 20:50] VITALS: BP 109/74
[2022-02-07] MEDS: TAMSULOSIN HCL 0.4 MG CAP.SR.24H PO SCH (21:00)
[2022-02-07] MEDS: MAGNESIUM OXIDE 400 MG TABLET PO SCH (21:00)
[2022-02-07] MEDS: OXYCODONE HCL 5 MG TABLET PO PRN (21:50)
--- NOTE | 2022-02-07 21:54 | NUR ---
Patient complaining of abdominal pain of 8/10 given pain meds as ordered, cont to monitor.
[2022-02-07] MEDS: ZOLPIDEM 5 MG TABLET PO PRN (23:13)
[2022-02-08 04:38] VITALS: BP 119/72
--- NOTE | 2022-02-08 06:06 | NUR ---
Patient asleep no sob no chest pain, no further episode of bloody BM at this time, no complain of pain, kept clean dry and comfortable, v/s stable cont to monitor.
[2022-02-08 06:52] LABS: MEAN CORPUSCULAR HEMOGLOBIN 30.4 uug (23.8-33.4); MEAN CORPUSCULAR VOLUME 92.1 fL (73.0-96.2); PLATELET COUNT (AUTO) 122 K/uL (152-348)
[2022-02-08 07:08] LABS: BILIRUBIN,TOTAL 0.7 mg/dL (0.2-1.0); CREATININE 1.1 mg/dL (0.6-1.3); POTASSIUM 3.7 mmol/L (3.5-5.1); TOTAL PROTEIN, SERUM 6.6 g/dL (6.4-8.2)
[2022-02-08 08:30] VITALS: BP 103/59
[2022-02-08] MEDS: SPIRONOLACTONE 50 MG TABLET PO SCH (09:03)
[2022-02-08] MEDS: FUROSEMIDE 40 MG TABLET PO SCH (09:03)
[2022-02-08] MEDS: MULTIVITAMINS,THERAPEUTIC TABLET PO SCH (09:03)
[2022-02-08] MEDS: GABAPENTIN 100 MG CAPSULE PO SCH ×3 (09:03→16:28)
[2022-02-08] MEDS: PANTOPRAZOLE SODIUM 40 MG VIAL IV SCH (09:03)
[2022-02-08] MEDS: POTASSIUM CHLORIDE 10 MEQ TAB.PRT.SR PO SCH (09:03)
[2022-02-08] MEDS: SUCRALFATE 1 G TABLET PO SCH ×3 (09:03→16:28)
[2022-02-08] MEDS: PROTEIN SUPPLEMENT (PROSTAT) 30 ML LIQUID PO SCH ×2 (09:04→16:29)
[2022-02-08] MEDS: FLUTICASONE/VILANTEROL 1 EACH BLST.W.DEV INH SCH (09:04)
[2022-02-08] MEDS: FLUTICASONE PROP NASAL SPRAY 16 GM BOTTLE NS SCH (09:04)
[2022-02-08] MEDS: LACTULOSE 20 G/30 ML LIQUID UDC PO SCH ×2 (09:04→16:28)
[2022-02-08] MEDS: REMEDY ESSENTIAL ZINC PASTE 113 GM TP SCH (09:05)
[2022-02-08] MEDS: CIPROFLOXACIN HCL 250 MG TABLET PO SCH (09:06)
[2022-02-08] MEDS: OXYCODONE HCL 5 MG TABLET PO PRN ×2 (09:30→16:28)
[2022-02-08] MEDS ORDERED: MAGN400T30 PO (10:47)
[2022-02-08] MEDS ORDERED: POTA10CA43 PO (10:47)
[2022-02-08 11:52] VITALS: BP 109/65
[2022-02-08] MEDS ORDERED: SOD FERRIC GLUC COMPLX/SUCROSE 125 MG in IV NORMAL SALINE 100 ML IV SCH (14:00)
[2022-02-08 16:00] VITALS: BP 106/76
--- NOTE | 2022-02-08 17:28 | NUR ---
Pt is a/o x 4, able to communicate needs. Pt complains of abdominal pain, PRN medication administered as ordered throughout shift. Plan is to discharge pt to [facility]. Discharge pending on medication arrival at [facility]. Facility will call to let us know when transportation arrival will be.
--- NOTE | 2022-02-08 18:26 | NUR ---
Called and gave report to Otto ROCKWELL at [facility]. commercial instructor supervisor time scheduled fro 7:30 pm by [facility]. All discharge education provided, all materials and summaries included in Packet. No continued IV antibiotics, will remove IV and ID bands prior to leaving or will endorse to next shift.
[2022-02-09 07:06] LABS: *IMMUNOGLOBULIN G, SERUM 2994 mg/dL (603-1613); A/G RATIO 0.5 (0.7-1.7); ALBUMIN 2.2 g/dL (2.9-4.4); ALPHA-1-GLOBULIN 0.3 g/dL (0.0-0.4); ALPHA-2-GLOBULIN 0.6 g/dL (0.4-1.0); BETA GLOBULIN 0.8 g/dL (0.7-1.3); GAMMA GLOBULIN 2.7 g/dL (0.4-1.8); GLOBULIN, TOTAL 4.3 g/dL (2.2-3.9); IMMUNOGLOBULIN M, SERUM 129 mg/dL (15-143); M-SPIKE 1.3 g/dL (Not Observed)
[2022-02-28] MEDS ORDERED: IBANDRONATE SODIUM PO SCH (09:00)
== END 2022-02-08 20:00 | DRG 871 ==
LOC: ER 14:00 → TELE3 21:59 → MEDSURG3 02-03 07:56
PROVIDERS: ADMIT Internal Medicine; ATTEND Nurse Practitioner Acute Care
PROC: 05H633Z Insertion of Infusion Device into Left Subclavian Vein, Percutaneous Approach (ICD-10-PCS; principal; 2022-01-27)
PROC: 30233N1 Transfusion of Nonautologous Red Blood Cells into Peripheral Vein, Percutaneous Approach (ICD-10-PCS; 2022-01-27)
PROC: B547ZZA Ultrasonography of Left Subclavian Vein, Guidance (ICD-10-PCS; 2022-01-27)
PROC: 06L38CZ Occlusion of Esophageal Vein with Extraluminal Device, Via Natural or Artificial Opening Endoscopic (ICD-10-PCS; 2022-01-28)
PROC: 0W9G3ZZ Drainage of Peritoneal Cavity, Percutaneous Approach (ICD-10-PCS; 2022-01-31)
PROC: 05H633Z Insertion of Infusion Device into Left Subclavian Vein, Percutaneous Approach (ICD-10-PCS; 2022-02-01)
PROC: B547ZZA Ultrasonography of Left Subclavian Vein, Guidance (ICD-10-PCS; 2022-02-01)
DX: A41.9 Sepsis, unspecified organism (principal); E43 Unspecified severe protein-calorie malnutrition; I21.A1 Myocardial infarction type 2; G92.8 Other toxic encephalopathy; I85.11 Secondary esophageal varices with bleeding; D61.818 Other pancytopenia; K76.6 Portal hypertension; B19.10 Unspecified viral hepatitis B without hepatic coma; R18.8 Other ascites; K22.10 Ulcer of esophagus without bleeding; K74.69 Other cirrhosis of liver; B19.20 Unspecified viral hepatitis C without hepatic coma; K76.82 Hepatic encephalopathy; D53.9 Nutritional anemia, unspecified; E83.42 Hypomagnesemia; E87.6 Hypokalemia; E88.09 Other disorders of plasma-protein metabolism, not elsewhere classified; I10 Essential (primary) hypertension; K31.89 Other diseases of stomach and duodenum; Z79.51 Long term (current) use of inhaled steroids; Z87.891 Personal history of nicotine dependence; Z20.822 Contact with and (suspected) exposure to COVID-19; N40.0 Benign prostatic hyperplasia without lower urinary tract symptoms; Z86.19 Personal history of other infectious and parasitic diseases; J44.9 Chronic obstructive pulmonary disease, unspecified; F10.21 Alcohol dependence, in remission; Z68.31 Body mass index [BMI] 31.0-31.9, adult; E11.9 Type 2 diabetes mellitus without complications; D50.9 Iron deficiency anemia, unspecified
CPT/HCPCS: 36415; 70030-TC; 71045; 76705; 82746; 82784; 83550; 83735; 83986; 84100; 84155; 84165; 84443; 84484; 85018; 85025; 85610; 85730; 86334; 86704; 86803; 86850; 86900; 86901; 86920; 87040; 87070; 87205; 87340; 87521; 87806; 93005; 93307; A4649; C9113; G0378; J0885; J1885; J2270; J2354; J2405; J2543; J2916; J3010; J3475; J3480; J3490; J3535; J3590; J7040; J7060; P9016